=== PATIENT | female | born 1980 | race Caucasian/White ===

== ENCOUNTER → 2019-08-07 16:26 | Outpatient (CLI) | payer BC, SELFPAY ==
--- NOTE | ~2019-08-07 | CT_ITS ---
EXAMINATION: CT sinus wo con EXAM DATE: 08/07/2019 16:55 INDICATION: Chronic sinusitis. Drainage. Pressure, cough. TECHNIQUE: Spiral CT of the sinuses was acquired in the axial plane. Coronal and sagittal reformatte d images were also reviewed. The dose-length product (DLP) for this examination was 244.62 mGy-cm. Iterative reconstruction (ASIR) was used as dose reduction technique. There is no prior study for co mparison. FINDINGS: The sinuses are normally developed. The sinuses are well aerated. The ostiomeatal unit s are patent. There is no sinus wall thickening. There is moderate rightward nasal septal devia tion. The mastoid air cells and middle ears are well aerated. External auditory canals are patent. The orbits and visualized soft tissues are unremarkable. IMPRESSION: Moderate rightward nasal septal deviation. Clear sinuses. Reviewed, dictated and finalized at location B. PATHOLOGIST
== END ==
PROVIDERS: Visit Provider Otolaryngology
DX: J01.41 Acute recurrent pansinusitis (principal); J34.2 Deviated nasal septum
CPT/HCPCS: 70486

== ENCOUNTER → 2020-10-26 08:48 | Outpatient (CLI) | payer OTHER, SELFPAY ==
--- NOTE | ~2020-10-26 | US_ITS ---
EXAMINATION: US thyroid EXAM DATE: 10/26/2020 09:16 INDICATION: Thyroid nodule. TECHNIQUE: Multiple grayscale and Doppler images of the thyroid were obtained (by a technologist who performed the scan) and subsequently reviewed. Individual nodules and recommendations may be reporte d in accordance with TI-RADS system as designated by the 2017 ACR White Paper TI-RADS committee. Comp raulson is made to prior examination from 01/15/2014. FINDINGS: The right thyroid lobe measures 4.8 x 2.4 x 2.0 cm, the left measuring 4.7 x 1.2 x 1.2 cm. There are scattered thyroid nodules identified. Largest nodule is in the right thyroid lobe measuring 2.2 x 1.8 x 1.7 cm (previously 1.8 x 1.2 x 1.1 cm in 2014) , solid (2 points), hypoechoic (2 points), wider than tall, smooth well defined margin, w ithout echogenic foci, category TR4 for this nodule. Next largest nodules adjacent to this measuring 1.3 x 1.5 x 0.9 cm, is unchanged in size compared to 2014 consistent with benign histology. IMPRESSION: Scattered thyroid nodule; recommend ultrasound-guided biopsy of the largest right thyroid lobe nodule. Reviewed, dictated and finalized at location A.
== END ==
PROVIDERS: Visit Provider Nurse Practitioner
DX: E04.1 Nontoxic single thyroid nodule (principal)
CPT/HCPCS: 76536

== ENCOUNTER 2021-02-14 10:09 | Outpatient (CLI) | payer OTHER, SELFPAY ==
--- NOTE | ~2021-02-14 | US_ITS ---
EXAMINATION: US FNA w image guidance DATE: 02/14/2021 11:06 INDICATION: Right thyroid nodule TECHNIQUE: A time-out was performed to verify the patient's name, date of , and procedure to be performed . The procedure and its benefits and risks were discussed with the patient. Risks specifically discus sed included bleeding and infection. The patient understood the risks and agreed to proceed. The neck was prepped and draped in the usual sterile manner. 4 mL 1% lidocaine was used for local anesthesia . 6 passes were made with a 25G needle into the lesion. Appropriate needle location was documented with continuous sonographic guidance. The specimens were passed to the instructional design technologist in the room. A sterile bandage was applied. There were no immediate complications. FINDINGS: Grayscale ultrasound images demonstrate biopsy needles advanced into 2.5 x 1.8 x 1.5 cm solid hypoech oic right thyroid mass. IMPRESSION: 1. Successful ultrasound-guided fine needle aspiration of a 2.5 cm TI RADS 4 right thyroid mass. Reviewed, dictated and finalized at location A. IMPRESSION: 1. Successful ultrasound-guided fine needle aspiration of a 2.5 cm TI RADS 4 r ight thyroid mass.
== END 2021-02-14 10:10 | disposition home or self-care (01) ==
PROVIDERS: PCP Family Medicine; Visit Provider Internal Medicine Endocrinology, Diabetes & Metabolism
DX: E04.1 Nontoxic single thyroid nodule (principal)
CPT/HCPCS: 10005; 88173; 88305

== ENCOUNTER → 2021-02-21 07:50 | Outpatient (CLI) | payer OTHER, SELFPAY ==
--- NOTE | ~2021-02-21 | US_ITS ---
EXAMINATION: US right upper quadrant DATE: 02/21/2021 08:14 INDICATION: Liver cyst and hemangioma TECHNIQUE: Multiple grayscale and Doppler ultrasound images of the abdomen were obtained. COMPARISON: MRI, 04/04/2019 FINDINGS: The head, body, and tail of the pancreas are normal. There is a 5.6 x 4.9 x 5.3 cm isoechoi c mass of the left hepatic lobe which has been previously demonstrated to be a hemangioma. The liver is otherwise normal with normal echogenicity and echotexture. No surface nodularity. Normal hepatopet al flow in the main portal vein. The gallbladder is normal with no abnormal wall thickening, perichol ecystic fluid or stones. The normal common bile duct measures 3 mm. There was no sonographic Galo s ign. IMPRESSION: 1. Left hepatic lobe mass previously characterized as a hemangioma by MRI. Reviewed, dictated and finalized at location B.
== END ==
PROVIDERS: PCP Family Medicine; Visit Provider Internal Medicine Endocrinology, Diabetes & Metabolism
DX: R16.0 Hepatomegaly, not elsewhere classified (principal)
CPT/HCPCS: 76705

== ENCOUNTER → 2021-07-26 07:35 | Outpatient (CLI) | payer OTHER, SELFPAY ==
--- NOTE | ~2021-07-26 | US_ITS ---
EXAMINATION: US abdomen limited DATE: 07/26/2021 07:58 INDICATION: Liver hemangioma. TECHNIQUE: Multiple grayscale and Doppler ultrasound images of the abdomen were obtained. COMPARISON: Ultrasound abdomen 02/21/2021, abdomen MRI 04/04/2019 FINDINGS: The visualized portions of the head, body, and tail of the pancreas are normal. There is a 4.7 cm hyperechoic mass in left hepatic lobe that demonstrated interrupted peripheral puddling of con trast on the prior MRI, consistent with a hemangioma. There is normal flow in main portal vein. The g allbladder is normal in size. No gallstones or gallbladder wall thickening. There is no sonographic M urphy sign. The common duct is normal and measures 3 mm. IMPRESSION: 1. 4.7 cm liver mass, stable from 04/04/2019, consistent with a hemangioma. Reviewed, dictated and finalized at location E. LIANCE ATTORNEY
== END ==
PROVIDERS: PCP Family Medicine; Visit Provider Internal Medicine Endocrinology, Diabetes & Metabolism
DX: D18.03 Hemangioma of intra-abdominal structures (principal)
CPT/HCPCS: 76705

== ENCOUNTER 2024-01-21 12:42 | Outpatient (CLI) | payer OTHER, SELFPAY ==
--- NOTE | ~2024-01-21 | US_ITS ---
EXAMINATION: US thyroid DATE: 01/21/2024 12:59 INDICATION: Nontoxic goiter. TECHNIQUE: Multiple ultrasound images of the thyroid were obtained. COMPARISON: Ultrasound 10/26/2020, 01/15/14 FINDINGS: The right thyroid lobe measures 4.9 x 1.9 x 1.8 cm. The left thyroid lobe measures 4.0 x 1.2 x 1.1 c m. In the right thyroid lobe, there is a 2.7 cm solid, hypoechoic, wider than tall nodule with lobul ated margin and punctate echogenic foci (TI-RADS TR5), stable from 02/14/21 when biopsy was benign. In the right thyroid lobe, there is a 15 mm solid, isoechoic, wider than tall nodule with ill-defined ma rgin without echogenic foci (TR3), stable from 01/15/14, likely benign. IMPRESSION: 1. Benign thyroid nodules. No follow-up is needed. Reviewed, dictated and finalized at location A.
== END 2024-01-21 12:43 ==
LOC: GOSHIMG 12:43
PROVIDERS: PCP Family Medicine; Visit Provider Internal Medicine Endocrinology, Diabetes & Metabolism
DX: E04.9 Nontoxic goiter, unspecified (principal)
CPT/HCPCS: 76536